=== PATIENT | female | born 1965 | race Hispanic/Latino ===

== ENCOUNTER 2018-11-12 08:32 | Emergency (ER) | payer OTHER ==
[2018-11-12 08:41] VITALS: BP 135/76
--- NOTE | 2018-11-12 09:19 | XRay Report ---
RIGHT ANKLE, 3 views: History: Swelling, limited range of motion, fall. There is moderate lateral soft tissue swelling. There is been previous internal fixation at the base of the first metatarsal. Chronic deformity of the distal fibula is suspected. This may represent a large ossicle or ununited chronic fracture. No acute fracture is visualized. Normal articulation at the ankle joint. IMPRESSION: Soft tissue swelling. No acute bony injury is identified. Apparent chronic injury to the distal fibula.
[2018-11-12] MEDS ORDERED: NORCO 5/325 PO ONE (09:25)
--- NOTE | 2018-11-12 09:32 | Emergency Department Report ---
ED Lower Extremity HPI - General Chief Complaint: Extremity Injury, Lower Stated Complaint: RT ANKLE PAIN/INJURY Time Seen by Provider: 11/12/18 09:25 Source: patient, family Mode of arrival: Wheelchair Limitations: Physical Limitation - History of Present Illness Initial Comments: 53-year-old female with a current history of HIV, hypertension comes in stating that she had a fall while walking her dog and her right ankle turned to the side. She comes in now pain and swelling. Patient currently on Genvoyi, lisinopril trazodone and gabapentin. Complaint: ankle injury -: This morning Injury: Ankle: Right Type of Injury: inversion Place: home Severity scale (0 -10): 9 Improves With: nothing Worsens With: weight bearing, movement, palpation Context: fall Associated Symptoms: swelling, unable to bear weight Treatments Prior to Arrival: cold therapy - Related Data Previous Rx's Medication Instructions Recorded Last Taken Type Ibuprofen [Motrin 600 MG tab] 600 mg PO Q8H PRN #21 tablet 11/12/18 Unknown Rx Allergies Allergy/AdvReac Type Severity Reaction Status Date / Time No Known Allergies Allergy Verified 11/12/18 08:39 ED Review of Systems ROS: Stated complaint: RT ANKLE PAIN/INJURY Other details as noted in HPI Comment: All other systems reviewed and negative Musculoskeletal: joint swelling, arthralgia ED Past Medical Hx - Past Medical History Previous Medical History?: Yes Hx Hypertension: Yes Hx HIV: Yes - Surgical History Past Surgical History?: No - Social History Smoking Status: Never Smoker Substance Use Type: Marijuana - Medications Home Medications: Home Medications Medication Instructions Recorded Confirmed Last Taken Type Ibuprofen [Motrin 600 MG tab] 600 mg PO Q8H PRN #21 tablet 11/12/18 Unknown Rx ED Physical Exam - General Limitations: Physical Limitation General appearance: alert, in no apparent distress - Head Head exam: Present: atraumatic, normocephalic - Eye Eye exam: Present: normal appearance, EOMI - ENT ENT exam: Present: mucous membranes moist - Expanded Lower Extremity Exam Right Hip exam: Present: normal inspection, full ROM Upper Leg exam: Present: normal inspection, full ROM Knee exam: Present: normal inspection, full ROM Lower Leg exam: Present: normal inspection, full ROM Ankle exam: Present: tenderness, swelling Foot/Toe exam: Present: full ROM, tenderness Neuro vascular tendon exam: Present: no vascular compromise ED Course Vital Signs 11/12/18 08:39 Temperature 97.7 F Pulse Rate 63 Respiratory 16 Rate Blood Pressure 135/76 O2 Sat by Pulse 99 Oximetry ED Lower Extremity MDM - Radiology Data Radiology results: report reviewed Patient: CHAVA AGUILAR MR#: [id number] : 1965 Acct:[id number] Age/Sex: 53 / F ADM Date: 11/12/18 Loc: ED Attending Dr: Ordering Physician: ELKIN JEAN-BAPTISTE MD Date of Service: 11/12/18 Procedure(s): XR ankle 3+V RT Accession Number(s): [id number] cc: ED MD ESTIVEN Fluoro Time In Minutes: RIGHT ANKLE, 3 views: History: Swelling, limited range of motion, fall. There is moderate lateral soft tissue swelling. There is been previous internal fixation at the base of the first metatarsal. Chronic deformity of the distal fibula is suspected. This may represent a large ossicle or ununited chronic fracture. No acute fracture is visualized. Normal articulation at the ankle joint. IMPRESSION: Soft tissue swelling. No acute bony injury is identified. Apparent chronic injury to the distal fibula. Transcribed By: TTR Dictated By: CARLOS ENRIQUE ALFARO JR, MD Electronically Authenticated By: CARLOS ENRIQUE ALFARO JR, MD Signed Date/Time: 11/12/18913 DD/ 2 TD/TT: 11/12/18913 - Medical Decision Making 52-year-old female comes in for right ankle pain and swelling status post level fall. Patient was given Gilead 5/325 she will be discharged home on ibuprofen x-ray shows no acute fractures. Will treat patient as an ankle sprain patient to follow up with her primary care provider is crutches and ankle stirrup. The patient continue with ice therapy as this is shown to help with swelling and pain. Critical care attestation.: If time is entered above; I have spent that time in minutes in the direct care of this critically ill patient, excluding procedure time. ED Disposition Clinical Impression: Ankle sprain Qualifiers: Encounter type: initial encounter Involved ligament of ankle: tibiofibular ligament Laterality: right Qualified Code(s): S93.431A - Sprain of tibiofibular ligament of right ankle, initial encounter Disposition: DC-01 TO HOME OR SELFCARE Is pt being admited?: No Does the pt Need Aspirin: No Condition: Stable Instructions: Ankle Stirrup Splint (ED), Ankle Sprain (ED), Ankle Exercises (GEN) Additional Instructions: Take pain medication as needed. Wear ankle splint use crutches to ambulate and events and walking as tolerated. X-rays were negative for any acute fractures. Prescriptions: Ibuprofen [Motrin 600 MG tab] 600 mg PO Q8H PRN #21 tablet PRN Reason: Pain Referrals: ALEX AZAR [Referring] - 3-5 Days
== END 2018-11-12 10:05 | disposition home or self-care (01) ==
LOC: ED 08:32
DX: S93.401A Sprain of unspecified ligament of right ankle, initial encounter (principal); I10 Essential (primary) hypertension; F12.10 Cannabis abuse, uncomplicated; W19.XXXA Unspecified fall, initial encounter; Y93.89 Activity, other specified; Y92.009 Unspecified place in unspecified non-institutional (private) residence as the place of occurrence of the external cause; Y99.8 Other external cause status

== ENCOUNTER 2019-03-04 08:52 | Emergency (ER) | payer OTHER ==
[2019-03-04] MEDS ORDERED: NORCO 5/325 PO ONE (09:28)
[2019-03-04] MEDS ORDERED: TORADOL IM ONE (09:28)
--- NOTE | 2019-03-04 09:46 | Emergency Department Report ---
ED Lower Extremity HPI - General Chief Complaint: Fall Stated Complaint: RT FOOT INJURY/PAIN Time Seen by Provider: 03/04/19 09:12 Source: patient Mode of arrival: Ambulatory Limitations: No Limitations - History of Present Illness Initial Comments: 53-year-old female with a past medical history of previous right ankle/foot injury, hypertension, and HIV presents to the hospital with recurrent right ankle/foot injury. Patient fell off of a 4-5 foot ladder 2 days ago injuring her right ankle and foot. She has been unable to bear weight since. Pain is primarily on the lateral ankle and entire foot. She was here October 2018 for right ankle injury. Diagnosed with ankle sprain and placed a stirrup splint. Patient to follow-up and had a MRI diagnosing a ligamentous tear. Patient Completed 3 weeks of physical therapy and was improving until this more recent injury. She is taking [id number] Advil for pain. Patient also reports a previous right ankle fracture in the past. - Related Data Previous Rx's Medication Instructions Recorded Last Taken Type Ibuprofen [Motrin 600 MG tab] 600 mg PO Q8H PRN #21 tablet 11/12/18 Unknown Rx Ibuprofen [Motrin] 600 mg PO Q8H PRN #30 tablet 03/04/19 Unknown Rx traMADol [Ultram 50 MG tab] 50 mg PO Q6HR PRN #15 tablet 03/04/19 Unknown Rx Allergies Allergy/AdvReac Type Severity Reaction Status Date / Time No Known Allergies Allergy Verified 11/12/18 08:39 ED Review of Systems ROS: Stated complaint: RT FOOT INJURY/PAIN Other details as noted in HPI Comment: All other systems reviewed and negative ED Past Medical Hx - Past Medical History Hx Hypertension: Yes Hx HIV: Yes - Social History Smoking Status: Never Smoker Substance Use Type: Alcohol - Medications Home Medications: Home Medications Medication Instructions Recorded Confirmed Last Taken Type Ibuprofen [Motrin 600 MG tab] 600 mg PO Q8H PRN #21 tablet 11/12/18 Unknown Rx Ibuprofen [Motrin] 600 mg PO Q8H PRN #30 tablet 03/04/19 Unknown Rx traMADol [Ultram 50 MG tab] 50 mg PO Q6HR PRN #15 tablet 03/04/19 Unknown Rx ED Physical Exam - General Limitations: No Limitations - Other Other exam information: Gen.: No acute distress Head: Atraumatic Eyes: Normal appearance EENT: Moist mucous membranes Neck: Normal appearance, no posterior midline tenderness, no meningismus Chest: Clear to auscultation bilaterally Cardiovascular: Regular rate and rhythm Abdomen: Normal appearance, soft, nontender, no rebound or guarding, normal bowel sounds Back: Normal appearance, nontender Extremity: No deformity. Right ankle: Tenderness at the lateral malleolus, dorsum of foot. Limited movement of toes and ankle secondary to pain. 2+ DP pulse. Superficial ulceration on top of the fourth toe. Unable to bear weight. No warmth or erythema Neuro: Alert, clear speech, no focal motor or sensory deficit Psychiatric: Appropriate Skin: No rash ED Course Vital Signs 03/04/19 08:59 Temperature 97.9 F Pulse Rate 76 Respiratory 18 Rate Blood Pressure 127/82 O2 Sat by Pulse 97 Oximetry ED Lower Extremity MDM - Radiology Data Radiology results: report reviewed RIGHT ANKLE, 3 VIEWS INDICATION: fall injury. COMPARISON: None. IMPRESSION: Normal bone mineralization. There is moderate lateral soft tissue swelling. Chronic appearing deformity involving the distal tip of the fibula is identified. No evidence for acute fracture or bone lesion. RIGHT FOOT, 3 VIEWS INDICATION: fall injury. COMPARISON: None. IMPRESSION: Normal bone mineralization. There is been previous internal fixation of the first metatarsal and medial cuneiform, correlate with history. There is no evidence for acute fracture or bone lesion. Mild degenerative changes are noted at the first metatarsophalangeal joint. No erosive joint pathology. The soft tissues are unremarkable. - Medical Decision Making Patient received [place] and Toradol for pain Posterior OCL splint placed per patient request since she reports that ankle stirrup did not adequately immobilize her ankle previously. Crutches provided. Ortho follow-up encouraged. - Differential Diagnosis fracture, contusion, sprain Critical Care Time: No Critical care attestation.: If time is entered above; I have spent that time in minutes in the direct care of this critically ill patient, excluding procedure time. ED Disposition Clinical Impression: Right ankle sprain, Right foot sprain Disposition: - TO HOME OR SELFCARE Is pt being admited?: No Does the pt Need Aspirin: No Condition: Stable Instructions: Ankle Sprain (ED), Foot Sprain (ED) Additional Instructions: Take the medication as prescribed. Follow-up with your doctor or with the doctor/clinic provided. Return if symptoms worsen as indicated by your discharge instructions. Prescriptions: Ibuprofen [Motrin] 600 mg PO Q8H PRN #30 tablet PRN Reason: Pain traMADol [Ultram 50 MG tab] 50 mg PO Q6HR PRN #15 tablet PRN Reason: Pain Referrals: PRIMARY CARE,MD [Primary Care Provider] - 3-5 Days your, orthopedic doctor [Other] - 3-5 Days
--- NOTE | 2019-03-04 10:15 | XRay Report ---
RIGHT ANKLE, 3 VIEWS INDICATION: fall injury. COMPARISON: None. IMPRESSION: Normal bone mineralization. There is moderate lateral soft tissue swelling. Chronic evangelist earing deformity involving the distal tip of the fibula is identified. No evidence for acute fracture or bone lesion. RIGHT FOOT, 3 VIEWS INDICATION: fall injury. COMPARISON: None. IMPRESSION: Normal bone mineralization. There is been previous internal fixation of the first metata rsal and medial cuneiform, correlate with history. There is no evidence for acute fracture or bone le kerri. Mild degenerative changes are noted at the first metatarsophalangeal joint. No erosive joint pa thology. The soft tissues are unremarkable. Signer Name: Cali Nguyen Jr, MD Signed: 03/04/2019 10:11 AM Workstation Name: [id number]
[2019-03-04 11:30] VITALS: BP 124/80
== END 2019-03-04 11:29 | disposition home or self-care (01) ==
LOC: ED 08:52
DX: S93.401A Sprain of unspecified ligament of right ankle, initial encounter (principal); S93.601A Unspecified sprain of right foot, initial encounter; I10 Essential (primary) hypertension; Z98.890 Other specified postprocedural states; W11.XXXA Fall on and from ladder, initial encounter; Y93.89 Activity, other specified; Y92.89 Other specified places as the place of occurrence of the external cause; Y99.8 Other external cause status
CPT/HCPCS: 29515; 73610; 73630; 96372; 99283; J1885